=== PATIENT | male | born 1935 | race Caucasian/White ===

== ENCOUNTER → 2019-01-17 | Outpatient (CLI) | payer OTHER ==
--- NOTE | 2019-01-27 20:57 | SLEEP ---
[address] [address] SLEEP STUDY REPORT Name: SUSANHERO Amber Room: [facility]#: [id number] Admission: 01/17/19 Attend Phys: Clarita Perez MD Discharge: Date of : 35 Report #: [id number] THIS REPORT FOR: //name// CC: Munir Perez MD This study has been reviewed in its entirety by a board certified sleep specialist DATE OF SERVICE: 01/17/2019 HOME SLEEP STUDY REFERRING PHYSICIAN: Dr. Clarita Perez. The patient is an 83-year-old who weighs 205 pounds with a BMI of 27.8. The patient's Midvale score was 10. The patient underwent home sleep study performed at [facility]. Total recording time was for 54 minutes. During the night study, the patient had 71 obstructive apneas, no central or mixed apneas, and 87 hypopneas. The patient's apnea hypopnea index was 21 per hour. Nocturnal oximetry study revealed an average oxygen saturation of 92% with the lowest of 82%. 51% of time in oxygen saturation less than 90%. Mean heart rate was 67 beats per minute. IMPRESSION: 1. Moderate sleep apnea-hypopnea syndrome at an AHI of 21 per hour. 2. Nocturnal hypoxia secondary to NGUYỄN. RECOMMENDATIONS: 1. The patient would benefit from CPAP titration. This can be performed as an in-lab versus home auto-titration study. 2. Once the patient is optimally treated with CPAP, then follow up in 4-6 weeks to assess compliance and to document clinical improvement. 3. Weight loss to the ideal body weight is recommended. 4. Avoid [employer] depressants. 5. Caution regarding driving until symptoms of sleep apnea resolve with the above recommendations. <ELECTRONICALLY SIGNED> By: Nemesio Mesa MD 01/27/197 1904 1946Ayoli Mesa MD /nt
== END ==
LOC: M.SLEEPLAB 09:56
DX: G47.33 Obstructive sleep apnea (adult) (pediatric) (principal); G47.30 Sleep apnea, unspecified; I48.91 Unspecified atrial fibrillation; R09.02 Hypoxemia

== ENCOUNTER 2019-12-27 17:56 | Emergency (ER) | payer MEDICARE ==
[~2019-12-27] VITALS: Ht 182.9 cm; Wt 90.7 kg
[2019-12-27] MEDS ORDERED: CHLORTHALIDONE25 MG PO (18:06)
[2019-12-27] MEDS ORDERED: EZALLOR SPRINKLE5 MG PO (18:07)
[2019-12-27] MEDS ORDERED: FLECAINIDE ACET50 M2 PO (18:07)
[2019-12-27] MEDS ORDERED: SUPER THERAVIT1 EACH PO (18:07)
[2019-12-27] MEDS ORDERED: FISH OIL 1,001000 M3 PO (18:07)
[2019-12-27] MEDS ORDERED: XARELTO20 MG PO (18:07)
[2019-12-27] MEDS ORDERED: BIOTIN5000 MCG PO (18:08)
[2019-12-27] MEDS ORDERED: COQ-10100 MG PO (18:08)
[2019-12-27 20:45] VITALS: BP 179/103
== END 2019-12-27 20:55 | disposition short-term general hospital (02) ==
LOC: M.ERS 17:56
DX: S51.811A Laceration without foreign body of right forearm, initial encounter (principal); S01.111A Laceration without foreign body of right eyelid and periocular area, initial encounter; S01.81XA Laceration without foreign body of other part of head, initial encounter; S06.340A Traumatic hemorrhage of right cerebrum without loss of consciousness, initial encounter; Z20.828 Contact with and (suspected) exposure to other viral communicable diseases; I48.0 Paroxysmal atrial fibrillation; I10 Essential (primary) hypertension; Z90.49 Acquired absence of other specified parts of digestive tract; W18.39XA Other fall on same level, initial encounter; Y93.89 Activity, other specified; Y92.89 Other specified places as the place of occurrence of the external cause; Y99.8 Other external cause status